=== PATIENT | male | born 1945 | race Caucasian/White ===

== ENCOUNTER → 2019-04-01 | Outpatient (CLI) | payer OTHER ==
[~2019-04-01] MED LIST: ASCO500T8 PO; ASPI-496 PO; ATOR40TA78 PO; BUDE0.5A INH; CHOL500015 PO; LOSA50TA14 PO; UBID100C41 PO; metformin PO; trazadone PO; vitamin b12 PO
[2019-04-01 15:19] LABS: MICROSCOPIC NOT IND
[2019-04-01 15:24] LABS: BASOPHILS # (AUTO) 0.06 x10^3/uL (0-0.1); BASOPHILS % (AUTO) 1 % (0-1); EOSINOPHILS # (AUTO) 0.31 x10^3/uL (0-0.4); EOSINOPHILS % (AUTO) 4 % (1-7); LYMPHOCYTES # (AUTO) 1.21 x10^3/uL (1-3.4); LYMPHOCYTES % (AUTO) 17 % (22-44); MD NO; MEAN CORPUSCULAR HEMOGLOBIN 30.6 pg (27.5-34.5); MEAN CORPUSCULAR HGB CONC 33.1 g/dL (33.2-36.2); MEAN CORPUSCULAR VOLUME 92.5 fL (81-97); MEAN PLATELET VOLUME 9.5 fL (7.4-10.4); MONOCYTES # (AUTO) 0.46 x10^3/uL (0.2-0.8); MONOCYTES % (AUTO) 6 % (2-9); NEUTROPHILS # (AUTO) 5.25 x10^3/uL (1.8-6.8); NEUTROPHILS % (AUTO) 72 % (42-75); PLATELET COUNT 217 x10^3/uL (130-400); RED BLOOD COUNT 4.83 x10^6/uL (4.38-5.82); RED CELL DISTRIBUTION WIDTH 13.4 % (9.4-14.8)
[2019-04-01 15:25] LABS: ALANINE AMINOTRANSFERASE 39 U/L (12-78); ALBUMIN 3.7 g/dL (3.4-5.0); ANION GAP 8 mmol/L (5-15); CALCIUM 8.8 mg/dL (8.5-10.1); CHLORIDE 106 mmol/L (98-107); CREATININE 0.84 mg/dL (0.7-1.3)
[2019-04-01 15:27] LABS: ALKALINE PHOSPHATASE 97 U/L (45-117); BILIRUBIN,TOTAL 0.5 mg/dL (0.2-1.0); INTERNATIONAL NORMALIZED RATIO 0.98 (0.93-1.1); PROTHROMBIN TIME 10.3 Seconds (9.6-11.5); TOTAL PROTEIN 7.3 g/dL (6.4-8.2)
== END | disposition home or self-care (01) ==
LOC: STAR 13:44
PROVIDERS: ATTEND Urology
DX: Z01.818 Encounter for other preprocedural examination (principal); N20.0 Calculus of kidney
CPT/HCPCS: 36415; 80053; 81003; 85025; 85610; 85730; 87086; 93005

== ENCOUNTER → 2019-04-06 | Outpatient (CLI) | payer OTHER ==
[~2019-04-06] MED LIST changes: +ALBUTEROL SULFATE 2.5 MG/3 ML NPPB PRN; +FENTANYL PF 100 MCG/2ML IV PRN; +HYDROmorphone 1 MG/ML, 1ML INJ IV PRN; +KETOROLAC 30 MG/1 ML IV PRN; +LABETALOL 5MG/ML, 20ML IV PRN; +MEPERIDINE/PF 25MG/0.5ML IVPush PRN; +METOCLOPRAMIDE 5 MG/ML, 2ML IV PRN; +ONDANSETRON 2MG/ML, 2ML IVPush PRN; +OXYcodone 5 MG/5 ML ORAL.SOL UDC PO PRN; +PLEASE ENTER HEIGHT AND WEIGHT MC SCH; +PROMETHAZINE 25 MG/ML, 1ML IV PRN; +hydrALAzine 20 MG/ML, 1ML IV PRN
== END | disposition home or self-care (01) ==
LOC: RAD 09:53
PROVIDERS: ATTEND Urology
DX: N20.0 Calculus of kidney (principal)
CPT/HCPCS: 74018

== ENCOUNTER 2019-04-07 19:52 | Day surgery (SDC) | payer OTHER ==
[~2019-04-07] VITALS: Ht 182.9 cm; Wt 133.2 kg
[2019-04-07] MEDS: hydrALAzine 20 MG/ML, 1ML IV PRN ×2 (18:38→19:00)
[~2019-04-07 19:52] MED LIST changes: +ACETAMINOPHEN 500 MG TABLET PO ONE; -ALBUTEROL SULFATE 2.5 MG/3 ML NPPB PRN; +CEFAZOLIN 1,000 MG ONE; +FENTANYL PF 100 MCG/2ML ONE; -HYDROmorphone 1 MG/ML, 1ML INJ IV PRN; +HYDROmorphone 2 MG/ML, 1ML IVPush PRN; -KETOROLAC 30 MG/1 ML IV PRN; -LABETALOL 5MG/ML, 20ML IV PRN; +LACTATED RINGERS 1,000 ML IV SCH; -MEPERIDINE/PF 25MG/0.5ML IVPush PRN; -METOCLOPRAMIDE 5 MG/ML, 2ML IV PRN; +MIDAZOLAM 1 MG/ML, 2ML ONE; +OMNIPAQUE 350 MG/ML, 50 ML BOTTLE ONE; +ONDANSETRON 2MG/ML, 2ML IV PRN; -ONDANSETRON 2MG/ML, 2ML IVPush PRN; +ONDANSETRON 2MG/ML, 2ML ONE; +OXYcodone 5 MG/5 ML ORAL.SOL UDC ONE; -PLEASE ENTER HEIGHT AND WEIGHT MC SCH; -PROMETHAZINE 25 MG/ML, 1ML IV PRN; +PROPOFOL 10 MG/ML, 20ML ONE; +ROCURONIUM 10 MG/ML,10ML ONE; +SUCCINYLCHOLINE 20 MG/ML, 10ML ONE; -hydrALAzine 20 MG/ML, 1ML IV PRN; +hydrALAzine 20 MG/ML, 1ML ONE
[2019-04-07] MEDS ORDERED: PHENAZOPYRIDINE 200 MG TABLET PO PRN (20:00)
[2019-04-07] MEDS ORDERED: OPIUM/BELLADONNA SUPP.RECT 16.2-30 MG PR PRN (21:00)
[2019-04-07] MEDS ORDERED: KETOROLAC 30 MG/1 ML IVPush ONE (21:00)
[2019-04-07] MEDS ORDERED: ONDANSETRON 2MG/ML, 2ML IVPush ONE (21:00)
== END 2019-04-07 22:05 | disposition home or self-care (01) ==
LOC: OUT 19:52 → 4NE 19:55 → OUT 22:05
PROVIDERS: ATTEND Urology
DX: N20.0 Calculus of kidney (principal); E11.9 Type 2 diabetes mellitus without complications; G47.33 Obstructive sleep apnea (adult) (pediatric); E66.01 Morbid (severe) obesity due to excess calories; Z90.49 Acquired absence of other specified parts of digestive tract; Z98.890 Other specified postprocedural states
CPT/HCPCS: 52356; 74420; 82360; 82962; 88300; C1726; C1758; C1769; C2617; J0330; J0360; J0690; J1885; J2250; J2405; J2704; J3010; J7120; Q9967; G0378

== ENCOUNTER → 2019-04-19 | Outpatient (CLI) | payer OTHER ==
[~2019-04-19] MED LIST changes: -ACETAMINOPHEN 500 MG TABLET PO ONE; -CEFAZOLIN 1,000 MG ONE; -FENTANYL PF 100 MCG/2ML IV PRN; -FENTANYL PF 100 MCG/2ML ONE; -HYDROmorphone 2 MG/ML, 1ML IVPush PRN; -LACTATED RINGERS 1,000 ML IV SCH; -MIDAZOLAM 1 MG/ML, 2ML ONE; -OMNIPAQUE 350 MG/ML, 50 ML BOTTLE ONE; -ONDANSETRON 2MG/ML, 2ML IV PRN; -ONDANSETRON 2MG/ML, 2ML ONE; -OXYcodone 5 MG/5 ML ORAL.SOL UDC ONE; -OXYcodone 5 MG/5 ML ORAL.SOL UDC PO PRN; -PROPOFOL 10 MG/ML, 20ML ONE; -ROCURONIUM 10 MG/ML,10ML ONE; -SUCCINYLCHOLINE 20 MG/ML, 10ML ONE; -hydrALAzine 20 MG/ML, 1ML ONE
== END | disposition home or self-care (01) ==
LOC: RAD 10:29
PROVIDERS: ATTEND Urology
DX: N20.0 Calculus of kidney (principal); Z96.0 Presence of urogenital implants; Z87.891 Personal history of nicotine dependence
CPT/HCPCS: 74018